=== PATIENT | male | born 1960 | race Caucasian/White ===

== ENCOUNTER → 2016-10-13 | Outpatient (CLI) | payer OTHER | END | disposition home or self-care (01) | LOC: PCVCCLINIC 10:37 | PROVIDERS: ATTEND Internal Medicine Cardiovascular Disease | DX: E78.00 Pure hypercholesterolemia, unspecified (principal); I25.10 Atherosclerotic heart disease of native coronary artery without angina pectoris; I48.91 Unspecified atrial fibrillation; I10 Essential (primary) hypertension | CPT/HCPCS: 80061; 93005; G0463 ==

== ENCOUNTER → 2017-08-04 | Outpatient (CLI) | payer OTHER ==
--- NOTE | 2017-08-04 10:13 | PCVCIMAG ---
APPROVED REPORT Study performed: 08/04/2017 07:53:58 EXAM: Comprehensive 2D, Doppler, and color-flow Echocardiogram Patient Location: Echo lab Status: routine BSA: 2.34 HR: 70 bpmBP: 142/84 mmHg Rhythm: NSR Other Information Study Quality: Adequate Indications Atrial Fibrillation Dyspnea CAD 2D Dimensions LVEF(%): 29.62 (>50%) IVSd: 12.97 (7-11mm) LVDd: 48.15 mm PWd: 12.30 (7-11mm) LVDs: 41.46 (25-40mm) Left Atrium: 47.03 (27-40mm) Aortic Root: 32.19 mm LV Single Plane 4CH: 52.82 % LV Single Plane 2CH: 54.57 %Plata's LVEF: 53.69 % Biplane EF: 54.3 % Volumes Left Atrial Volume (Systole) Single Plane 4CH: 123.10 mLSingle Plane 2CH: 101.53 mL LA ESV Index: 49.00 mL/m2 Aortic Valve AoV Peak Swapnil.: 1.59 m/s AO Peak Gr.: 10.21 mmHgLVOT Max P.64 mmHg LVOT Max V: 0.95 m/s Pulmonary Valve PV Peak Swapnil.: 0.89 m/sPV Peak Gr.: 3.15 mmHg Pulmonary Vein P Vein S: 0.33 m/s P Vein D: 0.42 m/s P Vein S/D Ratio: 0.79 Tricuspid Valve TR Peak Swapnil.: 2.36 m/s TR Peak Gr.: 22.31 mmHg Left Ventricle The left ventricle is normal size. There is normal LV segmental wall motion. Mild concentric left ventricular hypertrophy. Left ventricular systolic function is normal. The left ventricular ejection fraction is within the normal range. LVEF is 50-55%. This study is not technically sufficient to allow evaluation of the LV diastolic function due to atrial fibrillation. Right Ventricle The right ventricle is normal size. The right ventricular systolic function is normal. Atria Left atrium is severely dilated. Right atrium is moderately dilated. Aortic Valve The aortic valve is normal in structure. No aortic regurgitation is present. There is no aortic valvular stenosis. Mitral Valve The mitral valve is normal in structure. Mild mitral regurgitation. No evidence of mitral valve stenosis. Tricuspid Valve The tricuspid valve is normal in structure. Mild tricuspid regurgitation with PAP of 32 mmHg. Pulmonic Valve The pulmonary valve is normal in structure. There is no pulmonic valvular regurgitation. Great Vessels The aortic root is normal in size. IVC is normal in size and collapses with >50% inspiration Pericardium There is no pericardial effusion. <Conclusion> The left ventricle is normal size. Mild concentric left ventricular hypertrophy. LVEF is 50-55%. This study is not technically sufficient to allow evaluation of the LV diastolic function due to atrial fibrillation. The right ventricle is normal size. Left atrium is severely dilated. Right atrium is moderately dilated. The aortic valve is normal in structure. Mild mitral regurgitation. Mild tricuspid regurgitation with PAP of 32 mmHg. There is no pericardial effusion.
== END | disposition home or self-care (01) ==
LOC: PCVCIMAG 08:26
PROVIDERS: ATTEND Internal Medicine Cardiovascular Disease
DX: I08.1 Rheumatic disorders of both mitral and tricuspid valves (principal); I25.10 Atherosclerotic heart disease of native coronary artery without angina pectoris; R06.00 Dyspnea, unspecified; I48.91 Unspecified atrial fibrillation; I10 Essential (primary) hypertension; R07.89 Other chest pain
CPT/HCPCS: 93306; 93351

== ENCOUNTER → 2017-08-05 | Outpatient (CLI) | payer OTHER ==
[~2017-08-05] MED LIST: REGADENOSON 0.4 MG/5 ML DISP.SYRIN. IV ONE
--- NOTE | 2017-08-05 14:39 | PCVCIMAG ---
APPROVED REPORT Exam: Nuclear Stress Test Indication: Atrial Fibrillation, Chest pain, Dyspnea Patient Location: Out-Patient Stress Nurse: Barbraa Nair RN, TESSA Berrios Tech:LALO Hogue Ht: 6 ft 0 in Wt: 250 lbs BSA: 2.34 m2 HR: 72 bpm BP: 149/100 mmHg BMI: 33.9 Rhythm: AFIB Medical History Medical History: AFIB, CAD, Age Medications: Toprol XL, Irbesartan, Zetia, Savaysa, Multaq Allergies: No known drug allergies Previous Cardiac Procedures: PCI Pretest Chest Pain Characteristics: No chest pain Exercise History: Physically active Physical Disabilities: Knees Meds Held (24 hrs): Toprol XL NM EXAM: Myocardial Perfusion REST/STRESS Imaging Protocol: Rest Tc-99m/Stress Tc-99m 1 day Resting Data Rest SPECT myocardial perfusion imaging was performed in supine position 45 minutes following the intravenous injection of 14.9 mCi of Tc-99m Sestamibi. Time of rest injection: 829 Date: 08/05/2017 Administration Route: IV Administration Site: Left Arm Pharmacologic Stress Pharmacologic stress test was performed by injecting Regadenoson 0.4 mg IV push followed by the intravenous injection of 46.3 mCi of Tc-99m Sestamibi. Time of stress injection: 944 Date: 08/05/2017 Administration Route: IV Administration Site: Left Arm Gated Stress SPECT was performed 45 minutes after stress injection. The images were gated to evaluate regional wall motion and calculate left ventricular ejection fraction. Study Data Post stress, the left ventricular ejection was 64%.. SSS: 7 SRS: 6 SDS: 1 TID = 0.93. Perfusion There is a medium area of severely reduced uptake in the basal and mid segment of the anterior wall which is seen on the stress images as well as the resting images. This area thickens and moves normally and is most consistent with attenuation artifact. Wall Motion Normal left ventricular wall motion. Nuclear Conclusion 1. LOW RISK STUDY Interpreted by: Brenton Agustin MD Electronically Approved: 08/05/2017 12:28:02 Stress Test Details Stress Test: Pharmacologic stress testing performed using 0.4 mg of regadenoson per 5 mL given IV over 10 seconds. Reason for pharmacologic stress test: physical limitation. HR Resting HR: 72 bpmMax Heart Rate (APMHR): 161 bpm Max HR Achieved: 100 bpmTarget HR (85% APMHR): 136 bpm % of APMHR: 62 Recovery HR: 79 bpm BP Resting BP: 149/100 mmHg Max BP: 157/98 mmHg ECG Resting ECG: Atrial Fibrillation Stress ECG: Atrial Fibrillation Recovery ECG: Atrial Fibrillation Clinical Reason for Termination: Completed protocol Stress Symptoms: Dyspnea Exercise duration: 0 min 55 sec Symptoms resolved during recovery. Stress ECG Conclusion Clinical: Non-ischemic ECG: Non-ischemic <Conclusion> Clinical: Non-ischemic ECG: Non-ischemic
== END | disposition home or self-care (01) ==
LOC: PCVCIMAG 08:08
PROVIDERS: ATTEND Internal Medicine Cardiovascular Disease
DX: I25.10 Atherosclerotic heart disease of native coronary artery without angina pectoris (principal); I10 Essential (primary) hypertension; R06.00 Dyspnea, unspecified; E11.9 Type 2 diabetes mellitus without complications; I48.0 Paroxysmal atrial fibrillation; Z79.4 Long term (current) use of insulin; Z79.82 Long term (current) use of aspirin; Z79.899 Other long term (current) drug therapy
CPT/HCPCS: 78452; 93005; 93017; A9500; G0463

== ENCOUNTER → 2019-03-22 | Outpatient (CLI) | payer OTHER ==
--- NOTE | 2019-03-22 13:54 | PCVCIMAG ---
APPROVED REPORT Study performed: 03/22/2019 09:43:50 EXAM: Comprehensive 2D, Doppler, and color-flow Echocardiogram Patient Location: Echo lab Status: routine BSA: 2.33 HR: 71 bpmBP: 160/90 mmHg Rhythm: NSR Other Information Study Quality: Adequate Risk Factors: Cardiac Risk Factors: HTN, Hyperlipidemia Indications CAD Stent, Hyperlipidemia 2D Dimensions IVSd: 13.75 (7-11mm)LVOT Diam: 23.04 (18-24mm) LVDd: 46.63 mm PWd: 12.19 (7-11mm)Ascending Ao: 39.19 (22-36mm) LVDs: 34.33 (25-40mm) Left Atrium: 41.89 (27-40mm) Aortic Root: 31.00 mm LV Single Plane 4CH: 51.27 % LV Single Plane 2CH: 53.02 % Biplane EF: 52.5 % Volumes Left Atrial Volume (Systole) Single Plane 4CH: 66.95 mLSingle Plane 2CH: 57.66 mL LA ESV Index: 27.00 mL/m2 Aortic Valve AoV Peak Swapnil.: 1.71 m/s AO Peak Gr.: 11.63 mmHg Mitral Valve E/A Ratio: 1.1 MV Decel. Time: 197.40 ms MV E Max Swapnil.: 0.86 m/s MV A Swapnil.: 0.76 m/s TDI E/Lateral E': 9.56E/Medial E': 7.17 Medial E' Swapnil.: 0.12 m/s Lateral E' Swapnil.: 0.09 m/s Pulmonary Vein P Vein S: 0.51 m/sP Vein A: 0.41 m/s P Vein D: 0.33 m/sP Vein A Dur.: 90.0 msec P Vein S/D Ratio: 1.55 Tricuspid Valve TR Peak Swapnil.: 2.58 m/s TR Peak Gr.: 26.59 mmHg Left Ventricle The left ventricle is normal size. There is normal LV segmental wall motion. There is normal left ventricular wall thickness. Left ventricular systolic function is normal. The left ventricular ejection fraction is within the normal range. LVEF is 55-60%. The left ventricular diastolic function is normal. Right Ventricle The right ventricle is normal size. The right ventricular systolic function is normal. Atria The left atrium size is normal. The right atrium size is normal. Aortic Valve The aortic valve is normal in structure. No aortic regurgitation is present. There is no aortic valvular stenosis. Mitral Valve The mitral valve is normal in structure. Mild mitral regurgitation. No evidence of mitral valve stenosis. Tricuspid Valve The tricuspid valve is normal in structure. Trace to mild tricuspid regurgitation. Pulmonary artery pressure is 34mmHg. Pulmonic Valve The pulmonary valve is normal in structure. Trace to mild pulmonic regurgitation. Great Vessels The aortic root is normal in size. IVC is normal in size and collapses >50% with inspiration. Pericardium There is no pericardial effusion. <Conclusion> The left ventricle is normal size. LVEF is 55-60%. The left ventricular diastolic function is normal. The right ventricle is normal size. The left atrium size is normal. The aortic valve is normal in structure. Mild mitral regurgitation. Trace to mild tricuspid regurgitation. Pulmonary artery pressure is 34mmHg. The aortic root is normal in size. There is no pericardial effusion.
== END | disposition home or self-care (01) ==
LOC: PCVCIMAG 09:22
PROVIDERS: ATTEND Internal Medicine Cardiovascular Disease
DX: I08.1 Rheumatic disorders of both mitral and tricuspid valves (principal); I25.10 Atherosclerotic heart disease of native coronary artery without angina pectoris; I48.0 Paroxysmal atrial fibrillation; I10 Essential (primary) hypertension
CPT/HCPCS: 93306